=== PATIENT | female | born 1940 | race Caucasian/White ===

== ENCOUNTER → 2016-08-26 | Day surgery (SDC) | payer MEDICARE, OTHER ==
[~2016-08-26] MED LIST: ALLEGRA PO; AMBIEN PO; ASPIRIN81 M2 PO; BUSPIRONE HCL7.5 MG PO; CELECOXIB200 MG PO; CELEXA20 M1 PO; DIOVAN PO; HYDROCODON-ACE1 EA13; HYDROCODON-ACE1 EAC7 PO; HYDROCODONE/APA1 T16 PO; LIPITOR40 MG PO; LISINOPRIL10 MG PO; MYSOLINE50 M1 PO; NEURONTIN300 MG PO; NEXIUM PO; PROZAC PO; SINGULAIR PO; SYNTHROID PO; TACROLIMUS1 M1 PO; TOPAMAX50 MG PO; TRAMADOL HCL50 M1 PO
--- NOTE | ~2016-08-26 | OR ---
Unit #: [id number] #: [id number] Patient: KIMBERLY HALL [id number] [address] [place], [place] [address] [id number] O MR#: [id number] NAME: KIMBERLY HALL ROOM: Date of Procedure: Admission Date: 08/26/2016 Surgeon: Jesus Guevara M.D. : 1940 Attending Physician: Jesus Guevara M.D. Primary Care Physician: Mart Cortez D.O. PROCEDURE OPERATIVE NOTE PREOPERATIVE DIAGNOSES Neck pain, cervical radiculopathy, degenerative cervical disc disease, cervical spinal stenosis, post cervical fusion. POSTOPERATIVE DIAGNOSES Neck pain, cervical radiculopathy, degenerative cervical disc disease, cervical spinal stenosis, post cervical fusion. PROCEDURE PERFORMED Cervical epidural steroid injection with intravenous sedation under fluoroscopic guidance for needle localization. HISTORY The patient is a 75-year-old female with the previously mentioned diagnoses with worsening pain, especially through her neck, right parascapular area and right shoulder. She has failed conservative treatment. Based on history, pathology and exam, plans were for a trial of epidural steroids. Risks, benefits and (1) have been reviewed. PROCEDURE The patient was placed in a seated position. Standard monitors were applied. 2 mg of versed were given in divided doses for anxiolysis and sedation which were adequate. Vital signs remained stable. Sterile prep and drape then of the cervical area was performed. The skin then at the C5-6 level was localized with 1% lidocaine. An 18-gauge Hustead needle was then advanced via hanging drop technique and fluoroscopic guidance in toward the epidural space. The patient did not complain of any pain or paresthesia during needle advancement. After confirming proper positioning with fluoroscopy and radiographic contrast, 80 mg of Depo-Medrol and 2 mL of 0.25% bupivacaine were deposited. There was some reproduction of pain during the injection phase. The patient otherwise tolerated the procedure and was discharged to the recovery room in stable condition. Dictated by... Jesus Guevara M.D. HENRRY/sam Unit #: [id number] #: [id number] Patient: KIMBERLY HALL TD: 08/26/2016 12:13 JOB #: [id number] PROCEDURE OPERATIVE NOTE Page 1 of 1 X Jesus Guevara MD X PROCEDURE OPERATIVE NOTE
== END | disposition home or self-care (01) ==
LOC: CCSC 10:25
DX: M50.10 Cervical disc disorder with radiculopathy, unspecified cervical region (principal); M48.02 Spinal stenosis, cervical region; I10 Essential (primary) hypertension; J44.9 Chronic obstructive pulmonary disease, unspecified; K21.9 Gastro-esophageal reflux disease without esophagitis; M19.90 Unspecified osteoarthritis, unspecified site; F41.9 Anxiety disorder, unspecified; F32.9 Major depressive disorder, single episode, unspecified
CPT/HCPCS: J1040; J2250

== ENCOUNTER → 2016-09-02 | Day surgery (SDC) | payer MEDICARE, OTHER ==
--- NOTE | ~2016-09-02 | OR ---
Unit #: [id number] #: [id number] Patient: KIMBERLY HALL [id number] [address] [address] [id number] O MR#: [id number] NAME: KIMBERLY HALL ROOM: Date of Procedure: 09/02/2016 Admission Date: 09/02/2016 Surgeon: Jesus Guevara M.D. : 1940 Attending Physician: Jesus Guevara M.D. Primary Care Physician: Mart Cortez D.O. OPERATIVE REPORT JOB NOTE: CC: [facility] PREOPERATIVE DIAGNOSES Neck pain, cervical radiculopathy, post-cervical fusion, degenerative cervical disk and spine disease. POSTOPERATIVE DIAGNOSES Neck pain, cervical radiculopathy, post-cervical fusion, degenerative cervical disk and spine disease. PROCEDURE PERFORMED Cervical epidural steroid injection with intravenous sedation and fluoroscopic guidance for needle localization. INDICATIONS FOR PROCEDURE The patient is a 75-year-old female with previously mentioned diagnosis. She has nonsurgical adjacent level pathology above her prior cervical fusion, which include C2-C3, C3-C4, C4-C5 levels. The patient failed to settle with conservative treatment. Initial epidural steroid injection was done, which resulted in improvement of both the neck and upper extremity. She still has significant amount of pain, so we are going to proceed with a second injection based on history, pathology, symptomatology, and treatment that may be available to this. DESCRIPTION OF PROCEDURE The patient was placed in a seated position. Standard monitors were applied. 2 mg of Versed were given for sedation and anxiolysis, which were adequate. Vital signs remained stable. Sterile prep and drape then of cervical area was performed. The skin then at the C3-C4 level was localized with 1% lidocaine. An 18-gauge Mesurotead needle was then advanced via hanging drop technique and fluoroscopic guidance in toward the epidural space. After confirming proper positioning with fluoroscopy and radiographic contrast, 80 mg of Depo-Medrol and 2 mL of 0.25% bupivacaine were deposited. The patient tolerated the procedure otherwise well and was discharged to the recovery room in stable condition. Dictated by... Jesus Guevara M.D. LHP/modl Unit #: [id number] #: [id number] Patient: KIMBERLY HALL TD: 09/02/2016 23:02 JOB #: [id number] OPERATIVE REPORT Page 1 of 1 X Jesus Guevara MD X PROCEDURE OPERATIVE NOTE
== END | disposition home or self-care (01) ==
LOC: CCSC 10:37
DX: M50.11 Cervical disc disorder with radiculopathy, high cervical region (principal); I10 Essential (primary) hypertension; J44.9 Chronic obstructive pulmonary disease, unspecified; K21.9 Gastro-esophageal reflux disease without esophagitis; F32.9 Major depressive disorder, single episode, unspecified; F41.9 Anxiety disorder, unspecified; M19.90 Unspecified osteoarthritis, unspecified site; Z88.1 Allergy status to other antibiotic agents; Z79.1 Long term (current) use of non-steroidal anti-inflammatories (NSAID); Z79.899 Other long term (current) drug therapy; Z98.1 Arthrodesis status
CPT/HCPCS: J1040; J2250

== ENCOUNTER → 2016-09-09 | Day surgery (SDC) | payer MEDICARE, OTHER ==
--- NOTE | ~2016-09-09 | OR ---
Unit #: [id number] #: [id number] Patient: KIMBERLY HALL [id number] [address] [place], [place] [address] [id number] O MR#: [id number] NAME: KIMBERLY HALL ROOM: Date of Procedure: 09/09/2016 Admission Date: 09/09/2016 Surgeon: Jesus Guevara M.D. : 1940 Attending Physician: Jesus Guevara M.D. Primary Care Physician: Mart Cortez D.O. OPERATIVE REPORT PREOPERATIVE DIAGNOSES Neck pain, cervical radiculopathy, degenerative cervical disk and facet disease, cervical spondylosis. POSTOPERATIVE DIAGNOSIS Neck pain, cervical radiculopathy, degenerative cervical disk and facet disease, cervical spondylosis. PROCEDURE PERFORMED Cervical epidural steroid injection with intravenous sedation and fluoroscopic guidance for needle localization. INDICATIONS FOR PROCEDURE The patient is a 75-year-old female with neck and right upper extremity pain due to previously mentioned diagnosis. She has a previous C5-C6 fusion. She has significant adjacent level disease above and below the fusion, worse probably above the fusion. The patient has had 2 epidural steroid injections, first done below the fusion which she did moderately well. Second injection tried higher above the fusion. It does not do as well with this, so we are going to proceed with a final injection for that reason at the C5-C6 level and then follow up back at pain center. DESCRIPTION OF PROCEDURE The patient was placed in a seated position. Standard monitors were applied. 2 mg of Versed were given for sedation and anxiolysis, which were adequate. Vital signs remained stable. Sterile prep and drape then of the cervical area was performed. The skin then at the C5-C6 level was localized with 1% lidocaine. An 18-gauge Harperlabztead needle was then advanced via loss of resistance technique and fluoroscopic guidance in toward the epidural space. After confirming proper positioning with fluoroscopy and radiographic contrast, 80 mg Depo-Medrol and 2 mL of 0.25% bupivacaine were deposited. The patient tolerated the procedure well and was discharged to the recovery room in stable condition. Dictated by... Jesus Guevara M.D. LHP/modl Unit #: [id number] #: [id number] Patient: KIMBERLY HALL TD: 09/10/2016 03:21 JOB #: [id number] OPERATIVE REPORT Page 1 of 1 X Jesus Guevara MD X PROCEDURE OPERATIVE NOTE
== END | disposition home or self-care (01) ==
LOC: CCSC 10:22
DX: M50.121 Cervical disc disorder at C4-C5 level with radiculopathy (principal); M47.22 Other spondylosis with radiculopathy, cervical region; Z98.1 Arthrodesis status; J44.9 Chronic obstructive pulmonary disease, unspecified; I10 Essential (primary) hypertension; K21.9 Gastro-esophageal reflux disease without esophagitis
CPT/HCPCS: J1040; J2250